=== PATIENT | female | born 1960 | race African-American/Black ===

== ENCOUNTER 2017-11-16 14:07 | Emergency (ER) | payer SELFPAY ==
[~2017-11-16] VITALS: Ht 165.1 cm; Wt 68.0 kg
[2017-11-16] MEDS ORDERED: IBUPROFEN 600MG TABLET PO ONE (15:45)
[2017-11-16] MEDS ORDERED: BACITRACIN ZINC OINT UDPKT TOP ONE (15:45)
[2017-11-16 17:03] VITALS: BP 143/88
== END 2017-11-16 17:15 | disposition home or self-care (01) ==
LOC: ER 14:07
DX: S16.1XXA Strain of muscle, fascia and tendon at neck level, initial encounter (principal); S39.012A Strain of muscle, fascia and tendon of lower back, initial encounter; S80.812A Abrasion, left lower leg, initial encounter; S60.222A Contusion of left hand, initial encounter; V43.52XA Car driver injured in collision with other type car in traffic accident, initial encounter; Y93.89 Activity, other specified; Y92.488 Other paved roadways as the place of occurrence of the external cause
CPT/HCPCS: 73130; 99284